=== PATIENT | female | born 1980 | race Asian ===

== ENCOUNTER → 2020-02-06 | Outpatient (CLI) | payer BC | LOC: MAMMO 11:19 | PROVIDERS: ATTEND Obstetrics & Gynecology | DX: Z12.31 Encounter for screening mammogram for malignant neoplasm of breast (principal) | CPT/HCPCS: 77067 ==

== ENCOUNTER → 2021-01-26 | Outpatient (CLI) | payer BC | LOC: MAMMO 09:16 | PROVIDERS: ATTEND Obstetrics & Gynecology | DX: Z12.31 Encounter for screening mammogram for malignant neoplasm of breast (principal) | CPT/HCPCS: 77067 ==

== ENCOUNTER → 2021-09-24 | Outpatient (CLI) | payer SELFPAY | LOC: US 11:28 | PROVIDERS: ATTEND Obstetrics & Gynecology | DX: N63.20 Unspecified lump in the left breast, unspecified quadrant (principal) ==